=== PATIENT | male | born 1975 | race Caucasian/White ===

== ENCOUNTER 2017-09-23 08:04 | Emergency (ER) | payer OTHER ==
[~2017-09-23] VITALS: Ht 193 cm; Wt 91.6 kg
[~2017-09-23 08:04] MED LIST: OXYACE7.5T PO; OXYASA5T; PHENY100ER
[2017-09-23] MEDS ORDERED: PRAZ1 PO (08:33)
[2017-09-23] MEDS ORDERED: GABAPENTIN PO (08:33)
== END 2017-09-23 09:20 | disposition home or self-care (01) ==
LOC: ER 08:04
DX: L23.7 Allergic contact dermatitis due to plants, except food (principal); Z88.8 Allergy status to other drugs, medicaments and biological substances; Z88.5 Allergy status to narcotic agent; Z79.899 Other long term (current) drug therapy; F17.200 Nicotine dependence, unspecified, uncomplicated
CPT/HCPCS: 96372; 99283; J3301; Q0163

== ENCOUNTER 2017-09-24 07:20 | Emergency (ER) | payer OTHER ==
[~2017-09-24] VITALS: Ht 193 cm; Wt 91.6 kg
[~2017-09-24 07:20] MED LIST changes: +GABAPENTIN PO; +PRAZ1 PO
== END 2017-09-24 08:40 | disposition home or self-care (01) ==
LOC: ER 07:20
DX: L25.5 Unspecified contact dermatitis due to plants, except food (principal); F17.200 Nicotine dependence, unspecified, uncomplicated
CPT/HCPCS: 99282

== ENCOUNTER 2017-10-10 16:12 | Emergency (ER) | payer OTHER ==
[~2017-10-10] VITALS: Ht 193 cm; Wt 93.0 kg
[2017-10-10] MEDS ORDERED: TRIA15CR3 TOP (17:23)
== END 2017-10-10 17:30 | disposition home or self-care (01) ==
LOC: ER 16:12
DX: S39.011A Strain of muscle, fascia and tendon of abdomen, initial encounter (principal); F17.210 Nicotine dependence, cigarettes, uncomplicated; Z88.5 Allergy status to narcotic agent; Z79.899 Other long term (current) drug therapy; X58.XXXA Exposure to other specified factors, initial encounter
CPT/HCPCS: 96372; 99283; J1885

== ENCOUNTER 2017-12-06 13:57 | Emergency (ER) | payer OTHER ==
[~2017-12-06] VITALS: Ht 193 cm; Wt 91.2 kg
[~2017-12-06 13:57] MED LIST changes: +Neurontin 300300 MG PO; +TRIA15CR3 TOP
== END 2017-12-06 14:34 | disposition home or self-care (01) ==
LOC: ER 13:57
DX: T63.301A Toxic effect of unspecified spider venom, accidental (unintentional), initial encounter (principal); Z88.5 Allergy status to narcotic agent; Z79.899 Other long term (current) drug therapy; F17.210 Nicotine dependence, cigarettes, uncomplicated
CPT/HCPCS: 99281

== ENCOUNTER 2018-01-10 11:17 | Emergency (ER) | payer OTHER ==
[~2018-01-10] VITALS: Ht 193 cm; Wt 95.2 kg
[2018-01-10] MEDS ORDERED: PRAZ2 PO (11:29)
[2018-01-10] MEDS ORDERED: TRAM50 PO (11:29)
[2018-01-10] MEDS ORDERED: Hydroxyzine HCl50 MG (11:30)
[2018-01-10] MEDS ORDERED: CYCL10 PO (11:37)
[2018-01-10] MEDS ORDERED: Mobic15 MG PO (11:37)
== END 2018-01-10 11:53 | disposition home or self-care (01) ==
LOC: ER 11:17
DX: M54.6 Pain in thoracic spine (principal); V89.2XXA Person injured in unspecified motor-vehicle accident, traffic, initial encounter; Z88.5 Allergy status to narcotic agent; Z79.899 Other long term (current) drug therapy; F32.9 Major depressive disorder, single episode, unspecified; F17.210 Nicotine dependence, cigarettes, uncomplicated
CPT/HCPCS: 96372; 99283; J1885

== ENCOUNTER → 2019-01-03 | Outpatient (CLI) | payer OTHER ==
[~2019-01-03] MED LIST changes: +CYCL10 PO; +Hydroxyzine HCl50 MG; +IBU800 MG PO; +Mobic15 MG PO; +Monodox100 MG PO; +PRAZ2 PO; +Percocet 5-3251 EACH PO; +REMERON15 MG PO; +TRAM50 PO
[2019-01-03 15:56] LABS: U Amphetamine Screen Not Detected; U Barbituate Screen Not Detected; U Benzodiazapine Screen Not Detected; U Buprenorphine Screen Not Detected; U Cannabinoids Screen DETECTED; U Cocaine Screen Not Detected; U Methadone Screen Not Detected; U Methamphetamine Screen Not Detected; U Opiates Screen Not Detected; U Oxycodone Screen Not Detected; U Phencyclidine Screen Not Detected; U Propoxyphene Screen Not Detected
== END | disposition home or self-care (01) ==
LOC: LAB 15:27 → LAB SHORT 15:27
PROVIDERS: Registered Nurse Psychiatric/Mental Health
DX: Z51.81 Encounter for therapeutic drug level monitoring (principal); Z79.899 Other long term (current) drug therapy
CPT/HCPCS: G0480

== ENCOUNTER 2019-01-17 07:01 | Emergency (ER) | payer OTHER ==
[~2019-01-17] VITALS: Ht 195.6 cm; Wt 95.2 kg
[~2019-01-17 07:01] MED LIST changes: -IBU800 MG PO; -Percocet 5-3251 EACH PO; -REMERON15 MG PO
[2019-01-17] MEDS ORDERED: IBU800 MG PO (07:22)
[2019-01-17] MEDS ORDERED: REMERON15 MG PO (07:23)
[2019-01-17 07:46] LABS: Source, Urine Clean Catch
[2019-01-17 07:57] LABS: Appearance, Urine Clear (Clear); BASOPHILS ABSOLUTE AUTO 0.05 K/mm3 (0.00-0.23); BASOPHILS PERCENT AUTO 1 % (0-2); Bilirubin, Urine Neg (Neg); Blood, Urine Neg (Neg); Color, Urine Yellow (P-Yellow); EOSINOPHILS ABSOLUTE AUTO 0.16 K/mm3 (0.00-0.68); EOSINOPHILS PERCENT AUTO 3 % (0-6); Glucose Qualitative, Urine Neg (Neg); Hematocrit 43.2 % (37.0-53.0); Hemoglobin 13.9 g/dL (13.5-17.5); IMMATURE GRAN ABSOLUTE AUTO 0.01 K/mm3 (0.00-0.10); IMMATURE GRAN PERCENT AUTO 0 % (0-1); Ketones, Urine Neg (Neg); LYMPHOCYTES ABSOLUTE AUTO 1.66 K/mm3 (0.84-5.20); LYMPHOCYTES PERCENT AUTO 27 % (21-46); Leukocyte Esterase, Urine Neg (Neg); MONOCYTES ABSOLUTE AUTO 0.54 K/mm3 (0.16-1.47); MONOCYTES PERCENT AUTO 9 % (4-13); Mean Corpuscular HGB 29.8 pg (26.0-34.0); Mean Corpuscular HGB Conc 32.2 g/dL (31.5-36.5); Mean Corpuscular Volume 93 fL (80-100); Mean Platelet Volume 11.3 fL (9.1-12.4); NEUTROPHILS ABSOLUTE AUTO 3.65 K/mm3 (1.96-9.15); NEUTROPHILS PERCENT AUTO 60 % (41-73); Nitrite, Urine Neg (Neg); Platelet Count 223 K/mm3 (150-400); Protein, Urine Neg (Neg); RDW Coefficient Variation 13.6 % (11.7-14.2); RDW Standard Deviation 46.1 fL (35.1-46.3); Red Blood Cell Count 4.66 M/mm3 (4.30-5.90); Urobilinogen, Urine NORM (Normal); White Blood Cell Count 6.07 K/mm3 (4.00-11.30)
[2019-01-17 08:20] LABS: Alanine Aminotransfer (ALT/SGP 18 U/L (12-78); Albumin, Blood 3.8 g/dL (3.4-5.0); Albumin/Globulin Ratio 1.1 (0.8-1.8); Alk Phos 81 U/L (50-136); Anion Gap 6 mmol/L (6-16); Aspartate Aminotrans (AST/SGOT 11 U/L (12-37); Bilirubin, Total 0.3 mg/dL (0.1-1.0); Blood Urea Nitrogen 12 mg/dL (8-24); Bun/Creatinine Ratio 15.6 (12.0-20.0); CO2, Blood 25 mmol/L (21-32); Calcium, Blood 9.3 mg/dL (8.5-10.1); Chloride, Blood 110 mmol/L (98-108); Creatinine, Blood 0.77 mg/dL (0.60-1.20); Globulin, Blood 3.5 g/dL (2.2-4.0); Glomerular Filtration Rate >60 (60-); Glucose, Blood 103 mg/dL (70-99); Potassium, Blood 4.2 mmol/L (3.5-5.5); Sodium, Blood 141 mmol/L (136-145); Total Protein, Blood 7.3 g/dL (6.4-8.2)
[2019-01-17] MEDS ORDERED: Percocet 5-3251 EACH PO (12:46)
== END 2019-01-17 13:00 | disposition home or self-care (01) ==
LOC: ER 07:01
PROVIDERS: Emergency Medicine
DX: R10.11 Right upper quadrant pain (principal); F17.200 Nicotine dependence, unspecified, uncomplicated
CPT/HCPCS: 36415; 74177; 76705; 80053; 81003; 83690; 85025; 96361-59; 96374-59; 96375-59; 96376-59; 99284-25; J1170; J2405; J7120; Q9967

== ENCOUNTER → 2019-06-17 | Outpatient (CLI) | payer OTHER ==
[~2019-06-17] MED LIST changes: +IBU800 MG PO; +Percocet 5-3251 EACH PO; +REMERON15 MG PO
[2019-06-17 12:50] LABS: Influenza A Negative (NEGATIVE); Influenza B Negative (NEGATIVE)
== END ==
LOC: LAB 07:32 → LAB SHORT 07:32
PROVIDERS: Family Medicine
DX: J11.1 Influenza due to unidentified influenza virus with other respiratory manifestations (principal)
CPT/HCPCS: 87804

== ENCOUNTER 2022-12-28 12:04 | Emergency (ER) | payer OTHER ==
[~2022-12-28] VITALS: Ht 193 cm; Wt 102.1 kg
[2022-12-28 12:43] LABS: BASOPHILS ABSOLUTE AUTO 0.06 K/mm3 (0.00-0.23); BASOPHILS PERCENT AUTO 1 % (0-2); EOSINOPHILS ABSOLUTE AUTO 0.14 K/mm3 (0.00-0.68); EOSINOPHILS PERCENT AUTO 3 % (0-6); Hemoglobin 13.8 g/dL (13.5-17.5); IMMATURE GRAN ABSOLUTE AUTO 0.01 K/mm3 (0.00-0.10); IMMATURE GRAN PERCENT AUTO 0 % (0-1); LYMPHOCYTES ABSOLUTE AUTO 1.95 K/mm3 (0.84-5.20); LYMPHOCYTES PERCENT AUTO 35 % (21-46); MONOCYTES PERCENT AUTO 9 % (4-13); Mean Corpuscular HGB 29.2 pg (26.0-34.0); Mean Corpuscular HGB Conc 33.7 g/dL (31.5-36.5); Mean Corpuscular Volume 87 fL (80-100); Mean Platelet Volume 10.9 fL (9.1-12.4); NEUTROPHILS ABSOLUTE AUTO 2.94 K/mm3 (1.96-9.15); NEUTROPHILS PERCENT AUTO 53 % (41-73); Platelet Count 250 K/mm3 (150-400); RDW Coefficient Variation 12.7 % (11.7-14.2); RDW Standard Deviation 39.8 fL (35.1-46.3); Red Blood Cell Count 4.73 M/mm3 (4.30-5.90)
[2022-12-28 13:08] LABS: Albumin, Blood 4.2 g/dL (3.4-5.0); Albumin/Globulin Ratio 1.2 (0.8-1.8); Bilirubin, Total 0.2 mg/dL (0.1-1.0); Calcium, Blood 9.9 mg/dL (8.5-10.1); Creatinine, Blood 0.83 mg/dL (0.60-1.20); Globulin, Blood 3.6 g/dL (2.2-4.0); Potassium, Blood 3.8 mmol/L (3.5-5.5); Total Protein, Blood 7.8 g/dL (6.4-8.2)
[2022-12-28 16:44] LABS: Source, Urine Clean Catch
[2022-12-28 16:58] LABS: Appearance, Urine Clear (Clear); Bilirubin, Urine Neg (Neg); Blood, Urine Neg (Neg); Glucose Qualitative, Urine Neg (Neg); Ketones, Urine Neg (Neg); Leukocyte Esterase, Urine Neg (Neg); Nitrite, Urine Neg (Neg); Protein, Urine Neg (Neg); Specific Gravity, Urine 1.015 (1.003-1.022); Urobilinogen, Urine NORM (Normal)
[2022-12-28 16:59] LABS: Color, Urine Pale Yellow (P-Yellow)
[2022-12-28] MEDS ORDERED: TIZA4 PO (18:08)
[2022-12-28 18:29] VITALS: BP 145/62
== END 2022-12-28 18:28 | disposition home or self-care (01) ==
LOC: ER 12:04
PROVIDERS: Physician Assistant
DX: R07.89 Other chest pain (principal); F17.200 Nicotine dependence, unspecified, uncomplicated; Z79.899 Other long term (current) drug therapy; Z88.5 Allergy status to narcotic agent
CPT/HCPCS: 74177; 80053; 81003; 83690; 85025; 99284-25; A9270; Q9967